=== PATIENT | female | born 1980 | race Caucasian/White ===

== ENCOUNTER 2018-02-04 05:42 | Inpatient (IN) | payer MEDICAID ==
[2018-02-04] MEDS ORDERED: CEFAZOLIN 2 GM/50 ML (PMX) 50 ML IVPB (05:57)
[2018-02-04] MEDS ORDERED: MISOPROSTOL 200 MCG TAB PR ×2 (06:00→10:00)
[2018-02-04] MEDS ORDERED: CARBOPROST 250 MCG INJ IM ×2 (06:00→10:00)
[2018-02-04] MEDS ORDERED: CEFAZOLIN 2 GM/50 ML (PMX) 50 ML IV (06:00)
[2018-02-04] MEDS ORDERED: METHYLERGONOVINE 0.2 MG INJ IM ×2 (06:00→10:00)
[2018-02-04] MEDS ORDERED: OXYTOCIN 30 UNITS/LR 500 ML IV ×3 (06:00→23:32)
[2018-02-04 06:37] LABS: ADD MAN DIFF? NO
[2018-02-04 06:41] LABS: BASOPHILS % 0.3 % (0.0-2.0); EOSINOPHILS # 0.3 10^3/ul (0.0-0.5); EOSINOPHILS % 3.2 % (0.0-7.0); HEMATOCRIT 33.9 % (37.0-47.0); HEMOGLOBIN 11.7 g/dl (12.0-16.0); LYMPHOCYTES # 2.6 10^3/ul (0.8-2.9); LYMPHOCYTES % 33.8 % (15.0-51.0); MEAN CORPUSCULAR HEMOGLOBIN 32.8 pg (29.0-33.0); MEAN CORPUSCULAR HGB CONC 34.5 g/dl (32.0-37.0); MONOCYTE # 0.4 10^3/ul (0.3-0.9); MONOCYTES % 4.7 % (0.0-11.0); NEUTROPHIL # 4.5 10^3/ul (1.6-7.5); NEUTROPHILS % 57.6 % (39.0-77.0); PLATELET COUNT 156 10^3/UL (140-415); RED BLOOD COUNT 3.57 10^6/ul (4.20-5.40); RED CELL DISTRIBUTION WIDTH 14.8 % (11.5-14.5)
[2018-02-04 06:41] LABS: WHITE BLOOD COUNT 7.8 10^3/ul (4.8-10.8)
[2018-02-04] MEDS: LACTATED RINGER'S 1,000 ML IV (06:45)
[2018-02-04 07:00] LABS: INR 0.82; PROTIME 11.4 Sec (11.9-14.9); PT RATIO 0.9
[2018-02-04 07:01] LABS: PARTIAL THROMBOPLASTIN TIME 29.7 Sec (25.0-35.0)
[2018-02-04] MEDS: CEFAZOLIN 2 GM/50 ML (PMX) 50 ML IV ×4 (08:30→17:53)
[2018-02-04] MEDS ORDERED: LANOLIN 7 GM TUBE TOP (10:00)
[2018-02-04] MEDS ORDERED: ONDANSETRON 4 MG INJ IV ×2 (11:30)
[2018-02-04] MEDS ORDERED: morphine 2 MG INJ IV ×2 (11:30)
[2018-02-04] MEDS ORDERED: DIPHENHYDRAMINE 50 MG INJ IV (11:30)
[2018-02-04] MEDS ORDERED: NALOXONE (0.4 MG/ML) INJ IV (11:30)
[2018-02-04] MEDS ORDERED: morphine (1 MG/ML) 10ML SYRINGE IV ×3 (11:30)
[2018-02-04] MEDS: IBUPROFEN 600 MG TAB PO ×2 (12:00→17:55)
[2018-02-04] MEDS: OXYTOCIN 30 UNITS/LR 500 ML IV (12:36)
[2018-02-04 12:37] LABS: ADD MAN DIFF? NO
[2018-02-04 13:00] LABS: WHITE BLOOD COUNT 11.2 10^3/ul (4.8-10.8)
[2018-02-04 13:00] LABS: ABNORMAL IP MESSAGE 1; BASOPHILS % 0.2 % (0.0-2.0); EOSINOPHILS # 0.1 10^3/ul (0.0-0.5); EOSINOPHILS % 0.6 % (0.0-7.0); HEMATOCRIT 29.3 % (37.0-47.0); HEMOGLOBIN 10.1 g/dl (12.0-16.0); LYMPHOCYTES # 1.6 10^3/ul (0.8-2.9); LYMPHOCYTES % 14.3 % (15.0-51.0); MEAN CORPUSCULAR HEMOGLOBIN 33.6 pg (29.0-33.0); MEAN CORPUSCULAR HGB CONC 34.5 g/dl (32.0-37.0); MEAN CORPUSCULAR VOLUME 97.3 fl (82.0-101.0); MEAN PLATELET VOLUME 13.1 fl (7.4-10.4); MONOCYTE # 0.6 10^3/ul (0.3-0.9); MONOCYTES % 5.2 % (0.0-11.0); NEUTROPHIL # 8.9 10^3/ul (1.6-7.5); NEUTROPHILS % 79.3 % (39.0-77.0); PLATELET COUNT 134 10^3/UL (140-415); POSITIVE DIFF @See below; RED BLOOD COUNT 3.01 10^6/ul (4.20-5.40)
[2018-02-04 20:42] LABS: RAPID PLASMA REAGIN NONREACTIVE (NR)
[2018-02-04] MEDS: SENNA/DOCUSATE NA (8.6MG/50MG) TAB PO (21:56)
[2018-02-04] MEDS ORDERED: OXYTOCIN 30 UNITS/LR 0 ML IV ×2 (23:32)
[2018-02-04] MEDS ORDERED: KETOROLAC 30 MG INJ (23:32)
[2018-02-04] MEDS ORDERED: OXYTOCIN 10 UNIT INJ ×2 (23:32)
[2018-02-04] MEDS ORDERED: BUPIVACAINE 0.75%/DEXT (SPINAL) 2 ML INJ (23:32)
[2018-02-04] MEDS ORDERED: morphine SULFATE/PF (10 MG/10 ML) INJ (23:32)
[2018-02-04] MEDS ORDERED: METOCLOPRAMIDE 10 MG INJ (23:32)
[2018-02-04] MEDS ORDERED: FENTAnyl 50 MCG/ML VIAL (23:32)
[2018-02-04] MEDS ORDERED: ONDANSETRON 4 MG INJ (23:32)
[2018-02-05] MEDS: OXYTOCIN 30 UNITS/LR 500 ML IV (00:23)
[2018-02-05] MEDS: CEFAZOLIN 2 GM/50 ML (PMX) 50 ML IV (01:57)
[2018-02-05] MEDS: KETOROLAC 30 MG INJ IV (04:01)
[2018-02-05] MEDS: IBUPROFEN 600 MG TAB PO ×4 (06:00→17:53)
[2018-02-05] MEDS: morphine 2 MG INJ IV (08:10)
[2018-02-05 10:01] LABS: ADD MAN DIFF? NO; HEMATOCRIT 27.6 % (37.0-47.0); HEMOGLOBIN 9.6 g/dl (12.0-16.0); MEAN CORPUSCULAR HEMOGLOBIN 33.1 pg (29.0-33.0); MEAN CORPUSCULAR HGB CONC 34.8 g/dl (32.0-37.0); MEAN CORPUSCULAR VOLUME 95.2 fl (82.0-101.0); MEAN PLATELET VOLUME 12.8 fl (7.4-10.4); PLATELET COUNT 139 10^3/UL (140-415); RED CELL DISTRIBUTION WIDTH 14.4 % (11.5-14.5)
[2018-02-05 10:01] LABS: WHITE BLOOD COUNT 13.7 10^3/ul (4.8-10.8)
[2018-02-05 10:02] LABS: BASOPHILS % 0.1 % (0.0-2.0); EOSINOPHILS % 0.3 % (0.0-7.0); LYMPHOCYTES # 1.6 10^3/ul (0.8-2.9); LYMPHOCYTES % 11.5 % (15.0-51.0); MONOCYTE # 0.6 10^3/ul (0.3-0.9); MONOCYTES % 4.6 % (0.0-11.0); NEUTROPHIL # 11.4 10^3/ul (1.6-7.5); NEUTROPHILS % 83.1 % (39.0-77.0)
[2018-02-05] MEDS: SENNA/DOCUSATE NA (8.6MG/50MG) TAB PO ×2 (10:14→21:37)
[2018-02-05] MEDS: FERROUS SULFATE (EC) 325 MG TAB PO (21:36)
[2018-02-05] MEDS: OXYCODONE/ACETAMINOPHEN (5/325) TAB PO (21:45)
[2018-02-06] MEDS: IBUPROFEN 600 MG TAB PO ×4 (00:44→17:45)
[2018-02-06] MEDS: SENNA/DOCUSATE NA (8.6MG/50MG) TAB PO ×2 (09:51→20:45)
[2018-02-06] MEDS: FERROUS SULFATE (EC) 325 MG TAB PO ×2 (09:51→20:45)
[2018-02-07] MEDS: IBUPROFEN 600 MG TAB PO ×2 (00:02→05:30)
[2018-02-07] MEDS: SENNA/DOCUSATE NA (8.6MG/50MG) TAB PO (08:45)
[2018-02-07] MEDS: FERROUS SULFATE (EC) 325 MG TAB PO (08:45)
[2018-02-07] MEDS: OXYCODONE/ACETAMINOPHEN (5/325) TAB PO (08:46)
== END 2018-02-07 13:14 | disposition home or self-care (01) | DRG 766 ==
LOC: L-D 05:42 → PP1 11:59
PROVIDERS: Obstetrics & Gynecology
PROC: 10D00Z1 Extraction of Products of Conception, Low, Open Approach (ICD-10-PCS; principal; 2018-02-04 07:30)
DX: O34.219 Maternal care for unspecified type scar from previous cesarean delivery (principal); Z37.0 Single live birth; Z3A.39 39 weeks gestation of pregnancy; O32.1XX0 Maternal care for breech presentation, not applicable or unspecified
CPT/HCPCS: 85025; 85610; 85730; 86592; 86850; 86900; 86901; 99464